=== PATIENT | male | born 1995 | race Caucasian/White ===

== ENCOUNTER 2023-07-02 11:37 | Emergency (ER) | payer BC, SELFPAY ==
[2023-07-02 12:02] VITALS: BP 136/95; PULSE 95; RESP 16; TEMP 37; O2SAT 100
--- NOTE | 2023-07-02 12:08 | ED.WOUNDLAC ---
HPI - Wound/Laceration General Chief Complaint: Wound/Laceration Stated Complaint: Right Hand Laceration Source: patient Mode of arrival: ambulatory Limitations: no limitations History of Present Illness HPI narrative: 28-year-old male presented for complaint of laceration to the top of the right hand today (2nd MCP area). He states he cut it on metal on the bottom of the refrigerator when the screwdriver slipped while changing the wheel. Cleansed site prior to arrival and applied gauze. Denies decreased ROM to the finger. Unsure of last tetanus. Related Data Allergies Allergy/AdvReac Type Severity Reaction Status Date / Time No Known Allergies Allergy Unverified 10/27/22 07:58 Review of Systems Review of Systems: CONSTITUTIONAL: Denies body aches, fever, chills, or sweats. EYES: Denies visual changes, redness, or discharge. ENT: Denies rhinorrhea, congestion CARDIOVASCULAR: Denies chest pain, palpitations, or edema. RESPIRATORY: Denies cough or dyspnea. GASTROINTESTINAL: Denies abdominal pain, nausea, vomiting, or diarrhea. SKIN: reports right hand laceration MUSCULOSKELETAL: Denies back pain, joint pain, or myalgia. NEUROLOGIC: Denies headache, numbness, tingling, or weakness. [facility] Past Medical History Medical History Mild intermittent asthma Social History Social History Smoking status: Never smoker Second hand tobacco smoke exposure: No Alcohol intake: current Drinks per week: 3 Alcohol use details: rare, special occasion Substance use: never Substance use type: does not use Living arrangements: with family Occupation/Education: unemployed Gender identity (if verbalized by the patient): Male Comments At time of signature, I have reviewed and agree with nursing past medical, surgical, social and family history unless otherwise noted. Please see nursing chart for further information. There is no relevant family history pertinent to the presenting complaint Exam Narrative: GENERAL: Well-appearing HEAD: Normocephalic, atraumatic. EYES: conjunctivae clear, and EOMI. ENT: Mucous membranes moist. Oropharynx without edema, erythema or lesions. NECK: Supple. No lymphadenopathy CHEST: Clear to auscultation. HEART: Regular rate and rhythm. SKIN: Warm, dry. Right hand dorsal surface between 1st and 2nd metacarpals with 1.5cm linear laceration, slightly gaping, minimal bleeding. NEURO: Alert and oriented x3. Course Course Emergency Course: Patient is aware of diagnosis, understands and agrees to treatment plan. Anticipatory guidance given. Patient agrees to follow-up as directed and is aware of reasons to seek care at the emergency department. Portions of this record may have been created with voice recognition software Level of Care: Express Care Visit Vital Signs Vital signs: Vital Signs Temperature 98.6 F 07/02/23 12:02 Pulse Rate 95 07/02/23 12:02 Respiratory Rate 16 07/02/23 12:02 Blood Pressure 136/95 H 07/02/23 12:02 Pulse Oximetry 100 07/02/23 12:02 Oxygen Delivery Room Air 07/02/23 12:02 Temperature 98.6 F 07/02/23 12:02 Pulse Rate 95 07/02/23 12:02 Respiratory Rate 16 07/02/23 12:02 Blood Pressure 136/95 H 07/02/23 12:02 Pulse Oximetry 100 07/02/23 12:02 Oxygen Delivery Room Air 07/02/23 12:02 Reviewed Procedures Laceration Right hand: Date: 07/02/23 Size (cm): 1.5 Description: linear and clean Depth: simple, single layer Local Anesthetic: lidocaine 1% Amount of anesthesia used (mL): 1 Pre-repair: wound explored (wound cleansed with skintegrity, betadine) ====== Skin Level ====== Skin layer closed with: nylon Size (cm): 5-0 Number of sutures: 3 Technique: simple, interrupted ====== Subcutaneous Layer ======
[2023-07-02] MEDS: TETANUS,DIPHTHERIA,AC PERTUSSIS ADULT (0.5 ML) BOOSTRIX IM (12:46)
== END 2023-07-02 13:10 | disposition home or self-care (01) ==
PROVIDERS: Emergency Provider Nurse Practitioner Family; PCP Family Medicine
DX: S61.411A Laceration without foreign body of right hand, initial encounter (principal); W45.8XXA Other foreign body or object entering through skin, initial encounter; Z23 Encounter for immunization; J45.909 Unspecified asthma, uncomplicated
CPT/HCPCS: 12001; 90471; 90715; 99212; G0463

== ENCOUNTER 2024-06-01 13:17 | Emergency (ER) | payer BC, SELFPAY ==
[2024-06-01 13:27] VITALS: BP 129/77; PULSE 75; RESP 18; TEMP 36.5; O2SAT 98
--- NOTE | 2024-06-01 13:55 | ED.BACK ---
HPI - Back Pain/Injury General Chief Complaint: Back Pain/Injury Stated Complaint: Back Pain Time Seen by Provider: 06/01/24 13:41 Source: patient and RN notes reviewed Mode of arrival: ambulatory Limitations: no limitations History of Present Illness HPI Narrative: Patient presents today complaining of left low back pain x5 days. Pain initially began after patient leaned into a [employer] calming a baby and felt a sudden sharp pain to the area, but was not too severe. 2 days later he was doing the same thing and the pain became more severe to the same area. Denies radiation of the pain. Denies numbness or tingling in the extremities or genitalia. Denies loss of bowel or bladder control. He currently rates his pain 8/. He has been trying ice, ibuprofen, Tylenol without relief. Related Data Allergies Allergy/AdvReac Type Severity Reaction Status Date / Time No Known Allergies Allergy Verified 06/01/24 13:40 Review of Systems Review of Systems: CONSTITUTIONAL: Denies body aches, fever, chills, or sweats. EYES: Denies visual changes, redness, or discharge. ENT: Denies rhinorrhea, congestion, sore throat, or otalgia. CARDIOVASCULAR: Denies chest pain, palpitations, or edema. RESPIRATORY: Denies cough or dyspnea. GASTROINTESTINAL: Denies abdominal pain, nausea, vomiting, or diarrhea. GENITOURINARY: Denies dysuria or hematuria. SKIN: Denies rash, itching, or wounds. MUSCULOSKELETAL: + left low back pain NEUROLOGIC: Denies headache, numbness, tingling, or weakness. PSYCH: Denies depression or anxiety. [facility] Past Medical History Medical History Mild intermittent asthma Social History Social History Smoking status: Never smoker Second hand tobacco smoke exposure: No Alcohol intake: current Drinks per week: 3 Alcohol use details: rare, special occasion Substance use: never Substance use type: does not use Living arrangements: with family Occupation/Education: unemployed Gender identity (if verbalized by the patient): Male Comments At time of signature, I have reviewed and agree with nursing past medical, surgical, social and family history unless otherwise noted. Please see nursing chart for further information. There is no relevant family history pertinent to the presenting complaint Exam Narrative: GENERAL: Well-appearing, well-nourished, and in no acute distress. HEAD: Normocephalic, atraumatic. EYES: EOMI. No redness or drainage. Conjunctivae normal. ENT: Mucous membranes pink and moist. NECK: Normal AROM. CHEST: No respiratory distress. MUSCULOSKELETAL: No bony tenderness of the thoracic or lumbar spine. No right paraspinal muscle tenderness. Patient localizes his pain to the left lower lumbar paraspinal muscles, but has no tenderness to palpation. He does have a few palpable muscle spasms present. No SI joint tenderness. Normal bilateral patellar reflexes. Saddle sensation intact. Capillary refill normal. 5/5 strength in BLE, sensation intact. EXTREMITIES: Normal range of motion. No edema. SKIN: Warm, dry, no rash. Capillary refill normal. Normal skin turgor. NEURO: No focal deficits. Alert and oriented x3. Gait steady. PSYCH: Normal affect. No signs of depression or anxiety. Course Course Level of Care: Express Care Visit Vital Signs Vital signs: Vital Signs Temperature 97.7 F 06/01/24 13:27 Pulse Rate 75 06/01/24 13:27 Respiratory Rate 18 06/01/24 13:27 Blood Pressure 129/77 06/01/24 13:27 Pulse Oximetry 98 06/01/24 13:27 Oxygen Delivery Room Air 06/01/24 13:27 Temperature 97.7 F 06/01/24 13:27 Pulse Rate 75 06/01/24 13:27 Respiratory Rate 18 06/01/24 13:27 Blood Pressure 129/77 06/01/24 13:27 Pulse Oximetry 98 06/01/24 13:27 Oxygen Delivery Room Air 06/01/24 13:27 Reviewed MDM - Back Pain/Injury MDM Narrative Medical decision making narrative: Patient's symptoms are likely due to low back strain. He is having no spinal tenderness. Prescriptions for prednisone and Flexeril sent to pharmacy. Anticipatory guidance given. ED precautions given. Differential Diagnosis Differential diagnosis: Likely lumbar radiculopathy, sciatica and strain of lumbar region Critical Care Time Critical Care Time Critical Care Time: No Discharge Plan Discharge Clinical Impression: Low back strain Patient Disposition: Home, Self-Care Condition: Stable Instructions: Low Back Strain (ED) Additional Instructions: Your pain is likely due to a strain in your low back. Please take the prednisone and Flexeril as prescribed. Do not drive within 8 hours of taking the Flexeril as it can make you drowsy. Continue Tylenol or ibuprofen if needed for pain. Use heat to help relax your muscles as well. No heavy lifting, twisting, jumping etc. until your back is feeling better. Follow-up with your PCP in 1 week if symptoms are not improving. Go to the ER immediately if symptoms worsen to include numbness or tingling in your legs or genitalia, loss of bowel or bladder control, or significant worsening of your back pain. Your blood pressure was elevated above 120/80 today at Urgent Care. This puts you above the threshold for follow up. Please schedule a followup visit with your personal physician as soon as possible, for further evaluation and treatment. Even blood pressure exceeding 120/80 may indicate pre-hypertension. Prescriptions: New cyclobenzaprine 10 mg tablet 10 mg PO TID PRN (Reason: muscle spasm) Qty: 20 0RF prednisone 50 mg tablet 50 mg PO DAILY 5 Days Qty: 5 0RF Follow-up/Referrals: Kamaljit Alvarado MD [Primary Care Provider] - Time of Disposition: 13:57
== END 2024-06-01 14:00 | disposition home or self-care (01) ==
PROVIDERS: Emergency Provider Nurse Practitioner; PCP Family Medicine
DX: S39.012A Strain of muscle, fascia and tendon of lower back, initial encounter (principal); X50.9XXA Other and unspecified overexertion or strenuous movements or postures, initial encounter
CPT/HCPCS: 99213; G0463

== ENCOUNTER 2025-05-06 12:23 | Emergency (ER) | payer BC, SELFPAY ==
--- NOTE | ~2025-05-06 | XR_ITS ---
Examination: XR ribs LT 2V Clinical History: lower lateral rib pain xtoday. Popped with tic Comparison: None Technique: 4 views left ribs Findings/impression: 1. Nondisplaced fracture lateral most rib 10 possible. 2. No other rib fracture identified. Reviewed, dictated and finalized at location [facility]
--- OUTSIDE RECORDS SUMMARY | 2025-05-06 12:27 | XMS_ITS | Clinical Summary ---
Author Organization [facility] Address [address] [place] [address] Phone Care Team Providers Care Animal Scientist Name Role Phone Unavailable Primary Care Provider Unavailabl e Immunizations Immunization Administration Dates Next Due INFLUENZA VACCINE QUADRIVALENT 6 MOS UP PF IM Social History Tobacco Use Types Packs/Day Years Used Date Smoking Tobacco: Never Assessed Sex and Gender Information Value Date Recorded Sex Assigned at Not on file Legal Sex Male 8:43 AM [employer] Gender Identity Not on file Sexual Orientation Not on file Plan of Treatment Health Maintenance Due Date Last Done Comments DTAP/TDAP/TD VACCINES (1 - Tdap) 01/14/2015 HEPATITIS B VACCINES (1 of 3 - 19+ 3-dose series) 12/27 HPV VACCINES (1 - 3-dose SCDM series) 01/14/2023 INFLUENZA VACCINE (#1) 2025 03/30/2019 Insurance [employer] BLUE ACCESS/TRUE BLUE PPO
[2025-05-06 12:32] VITALS: BP 170/90; PULSE 93; RESP 18; TEMP 36.8; O2SAT 98
--- NOTE | 2025-05-06 12:49 | ED_ITS ---
HPI - General Adult General Chief complaint: Unspecified Stated complaint: L Rib Time Seen by Provider: 05/06/25 12:38 Source: patient and RN notes reviewed Mode of arrival: ambulatory Limitations: no limitations History of Present Illness HPI narrative: Patient presents today complaining of left lateral lower rib pain. He was having a tic episode of his chest today and felt a loud pop of his left lateral rib area followed by severe point tenderness. Currently rates his pain 8/10 and took a dose of Flexeril today without relief. Pain increases with cough, sneezing, deep breath and some movements. Related Data Home Medications ?Medication ?Instructions ?Recorded ?Confirmed ?Last Taken ?Type albuterol sulfate 90 mcg/actuation 1 puff inhalation Q 4H PRN 01/29/25 01/29/25 Unknown History aerosol inhaler (Ventolin HFA) Allergies Allergy/AdvReac Type Severity Reaction Status Date / Time No Known Allergies Allergy Verified 05/06/25 12:32 [facility] Past Medical History Medical History Mild intermittent asthma Social History Social History Second hand tobacco smoke exposure: No Alcohol intake: current Drinks per week: 3 Alcohol use details: rare, special occasion Substance use: never Substance use type: does not use Living arrangements: with family Occupation/Education: unemployed Gender identity (if verbalized by the patient): Male Comments Reviewed Exam Narrative: GENERAL: Well-appearing, well-nourished, and in no acute distress. HEAD: Normocephalic, atraumatic. EYES: EOMI. No redness or drainage. Conjunctivae normal. ENT: Mucous membranes pink and moist. Nares with rhinorrhea and frequent sniffing. NECK: Normal AROM. CHEST: No respiratory distress. Clear to auscultation. Point tenderness of the left lateral lower ribs without edema, ecchymosis, erythema, step-off, crepitus. HEART: Regular rate and rhythm. No murmur appreciated. Normal peripheral pulses. MUSCULOSKELETAL: No bony tenderness. EXTREMITIES: Normal range of motion. No edema. SKIN: Warm, dry, no rash. Capillary refill normal. Normal skin turgor. NEURO: Alert and oriented x3. Gait steady. Steady tics of the face and voice, few scattered tics of the trunk. PSYCH: Normal affect. No signs of depression or anxiety. Course Course Level of Care: Express Care Visit Vital Signs Vital signs: Vital Signs Temperature 98.3 F 05/06/25 12:32 Pulse Rate 93 05/06/25 12:32 Respiratory Rate 18 05/06/25 12:32 Blood Pressure 170/90 H 05/06/25 12:32 Pulse Oximetry 98 05/06/25 12:32 Oxygen Delivery Room Air 05/06/25 12:32 Temperature 98.3 F 05/06/25 12:32 Pulse Rate 93 05/06/25 12:32 Respiratory Rate 18 05/06/25 12:32 Blood Pressure 170/90 H 05/06/25 12:32 Pulse Oximetry 98 05/06/25 12:32 Oxygen Delivery Room Air 05/06/25 12:32 Reviewed Medical Decision Making MDM Narrative Medical decision making narrative: Patient presents today complaining of left lateral lower rib pain. He was having a tic episode of his chest today and felt a loud pop of his left lateral rib area followed by severe point tenderness. Currently rates his pain 8/10 and took a dose of Flexeril today without relief. Pain increases with cough, sneezing, deep breath and some movements. Upon exam,Point tenderness of the left lateral lower ribs without edema, ecchymosis, erythema, step-off, crepitus.Steady tics of the face and voice, few scattered tics of the trunk. X- ray shows nondisplaced fracture of the left lateral rib. Prescription for short course of Mason sent to pharmacy. Also recommend starting an NSAID to help with inflammation. Patient agrees with plan. Vital signs stable with mildly elevated blood pressure. Anticipatory guidance and ED precautions given. Differential Diagnosis Differential Diagnosis: Rib fracture, muscle strain Vital Signs Vital Signs: Vital Signs Temperature 98.3 F 05/06/25 12:32 Pulse Rate 93 05/06/25 12:32 Respiratory Rate 18 05/06/25 12:32 Blood Pressure 170/90 H 05/06/25 12:32 Pulse Oximetry 98 05/06/25 12:32 Oxygen Delivery Room Air 05/06/25 12:32 Temperature 98.3 F 05/06/25 12:32 Pulse Rate 93 11/09/25 12:32 Respiratory Rate 18 05/06/25 12:32 Blood Pressure 170/90 H 05/06/25 12:32 Pulse Oximetry 98 05/06/25 12:32 Oxygen Delivery Room Air 05/06/25 12:32 Imaging Data Radiologist's impression: Findings/impression: 1. Nondisplaced fracture lateral most rib 10 possible. 2. No other rib fracture identified. Reviewed, dictated and finalized at location [facility] [employer] Critical Care Time Critical Care Time Critical Care Time: No Discharge Plan Discharge Clinical Impression: Fracture of left tenth rib Patient Disposition: Home Condition: Stable Instructions: Rib Fracture (ED) Additional Instructions: Your x-ray shows fracture of your left 10th rib. Take the hydrocodone as prescribed. You may also take some additional ibuprofen or Aleve to help with inflammation. Continue to take deep breaths to prevent pneumonia. Follow-up with your PCP in a few weeks if symptoms are not improving. Go to the ER immediately if you develop shortness of breath or fever. Patient Language: Urdu Prescriptions: New hydrocodone-acetaminophen 5-325 mg tablet 1 tablet PO TID PRN (Reason: pain) Qty: 15 0RF No Action albuterol sulfate [Ventolin HFA] 90 mcg/actuation HFA aerosol inhaler 1 puff inhalation Q4H PRN Follow-up/Referrals: Kamaljit Alvarado MD [Primary Care Provider, [facility]] Time of Disposition: 13:29
== END 2025-05-06 13:32 | disposition home or self-care (01) ==
PROVIDERS: Emergency Provider Nurse Practitioner; PCP Family Medicine
DX: S22.32XA Fracture of one rib, left side, initial encounter for closed fracture (principal); X58.XXXA Exposure to other specified factors, initial encounter; F95.9 Tic disorder, unspecified; J45.909 Unspecified asthma, uncomplicated
CPT/HCPCS: 71100; 99213; G0463